=== PATIENT | female | born 1970 | race Caucasian/White ===

== ENCOUNTER 2021-04-20 10:49 | Inpatient (IN) | payer OTHER ==
[~2021-04-20] VITALS: Ht 152.4 cm; Wt 73.9 kg
[2021-04-20 11:00] VITALS: BP 125/89
[2021-04-20 11:17] LABS: ABSOLUTE NEUTROPHILS 3.6 thou/uL (1.4-8.2); BASOPHILS 1.2 % (0.0-2.0); HEMATOCRIT 39.6 % (37.0-47.0); HEMOGLOBIN 13.3 gm/dL (12.0-15.0); LYMPHOCYTES 34.6 % (24.0-44.0); MCH 29.7 pg (26.0-34.0); MCHC 33.6 g/dL (28.0-37.0); MCV 88.6 fL (80.0-100.0); MONOCYTES 8.1 % (1.0-8.0); PLATELET COUNT 294 thou/uL (150-400); POLYS 54.1 % (36.0-66.0); RBC 4.47 mil/uL (4.20-5.00); WBC 6.7 thou/uL (4.0-11.0)
--- NOTE | 2021-04-20 11:30 | NUR ---
UPON ARRIVAL TO CT, HEAD CT W/O COMPLETED. RN REMAINED WITH PT. RN MADE AWARE THAT PT NEEDS AN 18G FOR CT PERFUSION. RN STARTED SECOND IV TO RIGHT A/C AFTER HEAD CT W/O COMPLETED. PT REFUSED CT PERFUSION WITHOUT NAUSEA MEDS. PHYSICIAN MADE AWARE AND ORDER RECEIVED. MEDS GIVEN. CT PERFUSION THEN COMPLETED.
[2021-04-20 11:44] LABS: CREATININE 0.9 mg/dL (0.6-1.0); POTASSIUM 3.8 mmol/L (3.5-5.1)
[2021-04-20 11:54] LABS: ALBUMIN 3.9 g/dL (3.4-5.0); TOTAL BILIRUBIN 1.2 mg/dL (0.2-1.0)
[2021-04-20 12:43] LABS: APTT 22.8 Seconds (24.5-32.8); PROTIME 10.9 Seconds (10.5-12.1)
[2021-04-20] MEDS ORDERED: AJOVY AUTO225 MG/1.5 SUBQ (13:43)
--- NOTE | 2021-04-20 14:25 | NUR ---
PT ASKS IF SHE REALLY HAS TO STAY IN THE HOSPITAL. SHE SAYS WHEN THE MRI IS BACK, IF NOTHING IS WRONG MAYBE SHE COULD GO HOME. UPDATED HER THAT WHEN RESULTS COME BACK WE CAN CALL THE HOSPITALIST
[2021-04-20 17:22] VITALS: BP 126/83
[2021-04-20 17:49] VITALS: BP 131/82
[2021-04-20] MEDS ORDERED: ADZENYS XR-OD15.7 MG PO (17:53)
--- NOTE | 2021-04-20 18:40 | NUR ---
PT TRANSFERRED TO THE UNIT AT APPROXIMATELY 1730. PT ORIENTED TO THE ROOM, CALL LIGHT EXPLAINED, TELE MONITORING STARTED, VITAL SIGNS OBTAINED, ADMISSION PAPERWORK FILLED OUT AND SIGNED, ALLERGY BAND PLACED ON PT AND OUTSIDE ROOM. PT A&OX4 AND COMMUNICATING NEEDS TO STAFF APPRORPRIATLEY. PT STATES THEY STILL FEEL FOGGY AND CONFUSED SOME TIMES. PT AMBULATING IN THE ROOM ADLIB, DENIES FEELING DIZZY. PT IS A LOW FALL RISK. FALL PREVENTION EDUCATION PROVIDED, CALL LIGHT WITHIN REACH, AND FREQUENT ROUNDING IN PLACE. PT HAD A GOOD APPETITE AND CONSUMED 100% OF DINNER.
[2021-04-20 20:11] VITALS: BP 124/79
[2021-04-20 20:53] VITALS: BP 124/79
[2021-04-20 23:52] VITALS: BP 128/76
[2021-04-20] MEDS ORDERED: NURTEC ODT75 MG PO (23:59)
[2021-04-21 03:09] LABS: ABSOLUTE NEUTROPHILS 3.1 thou/uL (1.4-8.2); BASOPHILS 0.9 % (0.0-2.0); EOSINOPHILS 2.6 % (0.0-3.0); HEMATOCRIT 37.9 % (37.0-47.0); HEMOGLOBIN 12.7 gm/dL (12.0-15.0); MCH 30.3 pg (26.0-34.0); MCHC 33.6 g/dL (28.0-37.0); MCV 90.1 fL (80.0-100.0); MONOCYTES 8.2 % (1.0-8.0); PLATELET COUNT 248 thou/uL (150-400); POLYS 48.3 % (36.0-66.0); RBC 4.21 mil/uL (4.20-5.00); RDW 12.6 % (10.5-14.5); WBC 6.4 thou/uL (4.0-11.0)
[2021-04-21 03:18] LABS: CALCIUM 8.7 mg/dL (8.5-10.1); MAGNESIUM 1.8 mg/dL (1.8-2.4); POTASSIUM 3.5 mmol/L (3.5-5.1)
[2021-04-21 03:20] LABS: CHOLESTEROL 203 mg/dL (<200); HDL CHOLESTEROL 44 mg/dL (>40); LDL CHOLESTEROL 115 mg/dL (<100); TC:HDL 4.6 Ratio (Not establshd); TRIGLYCERIDE 221 mg/dL (<150); VLDL 44 mg/dL (<40)
[2021-04-21 03:47] LABS: SERUM ASSESSMENT Clear
--- NOTE | 2021-04-21 04:29 | NUR ---
ALERT AND ORIENTEDX4, SR ON TELE, C/O HEADACHE, TYL GIVENX1 WITH PARTIAL RELIEF, CONSTRUCTION SKILLS TEACHER NOTIFIED, NEW ONETINE ORDER RECEIVED AND INPLEMENTED, PT SLEEPING AT THIS TIME, OTHER ASSESSMENTS CHARTED, VSS, NO NAUSEA OR DIZZINESS NOTED THIS SHIFT, WILL CONTINUE TO MONITOR PER POC
[2021-04-21 05:07] LABS: GLYCOHEMOGLOBIN (HGB A1C) 5.6 % (4.8-5.6)
[2021-04-21 06:13] VITALS: BP 101/68
[2021-04-21 07:08] VITALS: BP 112/74
--- NOTE | 2021-04-21 07:58 | EKG ---
[address] [address] ELECTROCARDIOGRAM REPORT Name: RACHELANTONELLAKEYSHAWNISHMAEL Room #: 200-I ADM IN M.R.#: [id number] Admission: 04/20/21 Attend Phys: Charles Tillman MD Discharge: Date of : 72 Report #: [id number] [facility] ED Test Date: 2021-04-20 Test Time: 11:43:01 Pat Name: ISHMAEL SINGH Department: Room: 200 Gender: F Officer Captain: sudhir : 1970 Requested By: Aggie Lang Order Number: [id number] MD: Bruno Acevedo Measurements Intervals [place] Rate: 91 P: 13 AL: 120 QRS: -20 QRSD: 89 T: 20 QT: 369 QTc: 455 Interpretive Statements Sinus rhythm No previous ECG available for comparison Electronically Signed On 04-21-2021 7:58:24 DIRECTOR HRIS by Bruno Acevedo [email or web address] <ELECTRONICALLY SIGNED> By: Bruno Acevedo MD, [facility] 04/21/21 0758 1143 1143 Bruno Acevedo MD, FACC /EPI
--- NOTE | 2021-04-21 10:07 | 2DMMODE ---
[facility] [place] [address] 2 D/M-MODE ECHOCARDIOGRAM Name: ISHMAEL SINGH Room #: 200-I ADM IN M.R.#: [id number] Admission: 04/20/21 Attend Phys: Charles Tillman MD Discharge: Date of : 72 Report #: [id number] THIS REPORT FOR: cc: Peter Salguero Alan Z. DO Park, Jin S. MD ~ APPROVED REPORT Study performed: 04/21/2021 09:24:14 EXAM: Comprehensive 2D, Doppler, and color-flow Echocardiogram Patient Location: Bedside Room #: 200 Status: routine BSA: 1.71 HR: 80 bpm BP: 112/74 mmHg Rhythm: NSR Other Information Study Quality: Adequate Indications Dizziness. Echo Enhancing Agent Comments: Suboptimal imaging for bubble study. 2D Dimensions RVDd: 30.71 mm IVSd: 9.81 (7-11mm) LVOT Diam: 20.26 (18-24mm) LVDd: 41.13 mm PWd: 10.37 (7-11mm) LVDs: 27.60 (25-40mm) Left Atrium: 30.38 (27-40mm) Aortic Root: 30.17 mm Volumes Left Atrial Volume (Systole) Single Plane 4CH: 29.29 mL Single Plane 2CH: 40.42 mL LA ESV Index: 22.00 mL/m2 Aortic Valve AoV Peak Mitchell.: 1.54 m/s [facility] [address] [place] [address] 2 D/M-MODE ECHOCARDIOGRAM Name: ISHMAEL SINGH Room #: 200-I ADM IN M.R.#: [id number] Admission: 04/20/21 Attend Phys: Charles Tillman MD Discharge: Date of : 72 Report #: [id number] Peak Gr.: 9.52 mmHg LVOT Max P.01 mmHg LVOT Max V: 1.41 m/s LUCILLE Vmax: 2.95 cm2 Mitral Valve E/A Ratio: 1.6 MV Decel. Time: 191.43 ms MV E Max Mitchell.: 0.92 m/s MV A Mitchell.: 0.58 m/s MV PHT: 55.51 ms IVRT: 86.51 ms Pulmonary Valve PV Peak Mitchell.: 1.02 m/s PV Peak Gr.: 4.13 mmHg Pulmonary Vein P Vein S: 0.60 m/s P Vein A: 0.30 m/s P Vein D: 0.35 m/s P Vein A Dur.: 90.0 msec P Vein S/D Ratio: 1.71 Tricuspid Valve TR Peak Mitchell.: 2.17 m/s RAP Estimate: 5.00 mmHg TR Peak Gr.: 19.00 mmHg PA Pressure: 24.00 mmHg Left Ventricle The left ventricle is normal size. There is normal LV segmental wall motion. There is normal left ventricular wall thickness. Left ventricular systolic function is normal. LVEF is 60-65%. Right Ventricle The right ventricle is normal size. The right ventricular systolic function is normal. Atria The left atrium size is normal. The right atrium size is normal. Aortic Valve The aortic valve is normal in structure. No aortic regurgitation is present. There is no aortic valvular stenosis. Mitral Valve The mitral valve is normal in structure. There is no mitral valve regurgitation noted. No evidence of mitral valve stenosis. [facility] [address] [employer] [place] [address] 2 D/M-MODE ECHOCARDIOGRAM Name: ISHMAEL SINGH Room #: 200-I ADM IN M.R.#: [id number] Admission: 04/20/21 Attend Phys: Charles Tillman MD Discharge: Date of : 72 Report #: [id number] Tricuspid Valve The tricuspid valve is normal in structure. Trace tricuspid regurgitation. Estimated PAP is 24mmHg. Pulmonic Valve The pulmonary valve is normal in structure. There is no pulmonic valvular regurgitation. Great Vessels The aortic root is normal in size. Ascending aorta is not well visualized. IVC is normal in size and collapses >50% with inspiration. Pericardium There is no pericardial effusion. <Conclusion> The left ventricle is normal size. There is normal left ventricular wall thickness. Left ventricular systolic function is normal. The right ventricle is normal size. The left atrium size is normal. The aortic valve is normal in structure. There is no mitral valve regurgitation noted. Trace tricuspid regurgitation. Estimated PAP is 24mmHg. <ELECTRONICALLY SIGNED> By: Jessee Nj MD 04/21/21 1006 1006 100 Jessee Nj MD /INF
[2021-04-21 11:15] VITALS: BP 111/72
[2021-04-21 11:33] VITALS: BP 117/73
--- NOTE | 2021-04-21 11:55 | NUR ---
ORDERS FOR EVAL AND TREAT. SPOKE TO Pt WHO STATES HER SYMPTOMS ARE GONE AND SHE HAS BEEN UP WITHOUT DIFFICULTY AND IS DISCHARGING HOME LATER TODAY. Pt DECLINING A FORMAL P.T. EVAL BUT APPEARS SAFE FOR HOME
--- NOTE | 2021-04-21 12:11 | NUR ---
PATIENT ADMITTED FOR VERTIGO AND NAUSEA. CHART REVIEWED AND DISCUSSED WITH CARE TEAM. [facility]ICAN THERAPY INDICATED PT REFUSED THERAPY EVAL THIS AM AND REPORTED PT APPEARED ABOUT TO DC HOME WITH NO NEEDS. IT IS ANTICIPATED PT WILL BE MEDICALLY STABLE TO DC LATER THIS DAY. NURSING NOTES INDICATE PT UP ADLIB IN ROOM. NO CM INTERVENTIONS INDICATED AT THIS TIME BUT WILL FOLLOW SHOULD DC NEEDS ARISE.
[2021-04-21] MEDS ORDERED: BAYER CHEWABLE81 MG PO (13:05)
[2021-04-21 13:24] VITALS: BP 111/72
[2021-04-21 13:45] VITALS: BP 111/72
--- NOTE | 2021-04-21 13:46 | NUR ---
DISCHARGED PATIENT. EXPLAINED AND HIGHLIGHTED DISCHARGE INSTRUCTIONS INCLUDING MEDICATION CHANGES AND FOLLOW UP APPOINTMENTS. PATIENT STATED SHE UNDERSTOOD AND DID NOT HAVE ANY FUTHER QUESTIONS, REMOVED IV'S WITH TIPS INTACT. REMOVED OUTSOLE FLEXER.
--- NOTE | 2021-04-22 11:51 | HC ---
[facility] [place] [address] CONSULTATION Name: ISHMAEL SINGH Room #: 200-I [facility] IN M.R.#: [id number] Admission: 04/20/21 Attend Phys: Charles Tillman MD Discharge: 04/21/21 Date of : 72 Report #: [id number] THIS REPORT FOR: cc: Peter Salguero Alan Z. DO Khosla, Parveen K. MD ~ DATE OF SERVICE: 04/20/2021 HISTORY OF PRESENT ILLNESS: This is a 51-year-old female patient who was seen by me for any neurological etiology for the patient's dizziness. The patient was first seen by [facility] and subsequently a consultation was requested to follow up on this patient. She said she just felt dizzy and she has no tonic-clonic activity. She had some nausea with it. Since then, she has returned back to her baseline. REVIEW OF SYSTEMS: Indicates she has been diagnosed with ADHD. She has been tried on stimulant. She said she had taken Adderall in the past, but she was not certain how long ago was it and why she took it. She said she is on a medication for ADHD by her family practice. She sees a neurologist at [facility] for migraine. Migraine is always unilateral and they are treating her for a long time. Apparently, she had an MRI in the past to evaluate it further. Rest of the 14-point review of system was carried out and is pretty much unremarkable. PAST MEDICAL HISTORY: Positive for migraine for which she follows up with neurologist. SOCIAL HISTORY: She does not drink or smoke. PHYSICAL EXAMINATION: NEUROLOGICAL: Indicates she was alert and responsive. Her speech, concentration, fund of knowledge and memory was within normal limits. Cranial nerve and neuromuscular examination was unremarkable. There was no meningeal sign. There was no carotid bruits. CARDIORESPIRATORY: Unremarkable. No respiratory difficulty. VITAL SIGNS: Blood pressure is 125/85, respirations 18, pulse is 79. LABORATORY DATA: White count is 6.7 and GFR is 66. She had multiple studies, which were reviewed. CT angiography was mostly unremarkable. MRI is pending. IMPRESSION AND PLAN: Dizziness, for which neurological etiology is unlikely. She is scheduled to have an MRI done and we will look at the MRI. Until the MRI shows any overriding finding, it is unlikely that there is any neurological etiology for the patient's symptoms. She should be worked up for alternate etiology and that I will defer to the hospitalist. Her EKG has shown a question of old infarct and I am not sure how much to pursue and I will defer that to [address] [address] CONSULTATION Name: ISHMAEL SINGH Room #: 200-I [facility] IN M.R.#: [id number] Admission: 04/20/21 Attend Phys: Charles Tillman MD Discharge: 04/21/21 Date of : 72 Report #: [id number] hospitalist or any other compliance consultant, they want to consult. The question of how much stimulant, she should take. She should also discuss with the person prescribing her. However, if her MRI of the brain is also unremarkable, it is unlikely that she has any neurological etiology and [facility] has recommended no further workup and I agree with that. Thank you very much for this referral and if you have any questions, please feel free to contact me. <ELECTRONICALLY SIGNED> By: Timo Sanders MD 04/22/21 1151 1339 28 Timo Sanders MD /nt
== END 2021-04-21 14:02 | disposition home or self-care (01) | DRG 93 ==
LOC: ER 10:49 → EROBS 12:21 → 2N 12:21
PROVIDERS: Nurse Practitioner; Nurse Practitioner Family; Psychiatry & Neurology Neuromuscular Medicine; ADMIT Internal Medicine; ATTEND Internal Medicine
DX: R20.2 Paresthesia of skin (principal); Z20.822 Contact with and (suspected) exposure to COVID-19; G43.909 Migraine, unspecified, not intractable, without status migrainosus; E66.01 Morbid (severe) obesity due to excess calories; Z68.31 Body mass index [BMI] 31.0-31.9, adult; Z88.2 Allergy status to sulfonamides; Z88.8 Allergy status to other drugs, medicaments and biological substances; Z91.040 Latex allergy status; F90.9 Attention-deficit hyperactivity disorder, unspecified type; I48.91 Unspecified atrial fibrillation
CPT/HCPCS: 10081